=== PATIENT | male | born 1955 | race African-American/Black ===

== ENCOUNTER 2016-11-23 18:23 | Emergency (ER) | payer OTHER ==
[~2016-11-23] VITALS: Ht 185.4 cm; Wt 106.4 kg
[~2016-11-23 18:23] MED LIST: AMLO5TAB4 PO; ASPI81TA2 PO; ATOR20TA86 PO; CARV12.580 PO; FURO-151 PO; POTA10CA44 PO
[2016-11-23 18:26] VITALS: BP 151/113
== END 2016-11-23 20:24 | disposition left against medical advice (07) ==
LOC: EMS 18:25
DX: Z53.21 Procedure and treatment not carried out due to patient leaving prior to being seen by health care provider (principal)

== ENCOUNTER 2018-04-17 09:12 | Inpatient (IN) | payer MEDICARE, OTHER ==
[~2018-04-17] VITALS: Ht 185.4 cm; Wt 106.4 kg
[~2018-04-17 09:12] MED LIST changes: -AMLO5TAB4 PO; -ASPI81TA2 PO; +ASPI81TA39 PO; -CARV12.580 PO
[2018-04-17] MEDS ORDERED: IPRATROPIUM BROMIDE 0.5 MG/2.5 ML NEB SOLUTION NEB ONE (10:23)
[2018-04-17 10:49] LABS: BASOPHILS % (AUTO) 1.2 % (0.0-2.0); HEMATOCRIT 43.3 % (41-53); HEMOGLOBIN 14.5 g/dL (13.5-17.5); LYMPHOCYTES # (AUTO) 1.5 K/uL (1.0-4.8); LYMPHOCYTES % (AUTO) 23.3 % (22.0-44.0); MEAN CORPUSCULAR HEMOGLOBIN 29.8 pg (26.0-34.0); MEAN CORPUSCULAR HGB CONC 33.6 G/dL (31.0-37.0); MEAN CORPUSCULAR VOLUME 89 fL (80-100); MONOCYTES # (AUTO) 0.4 K/uL (0.1-1.0); NEUTROPHILS # (AUTO) 4.2 K/uL (1.8-7.7); NEUTROPHILS % (AUTO) 67.5 % (40.0-70.0); PLATELET COUNT (AUTO) 161 K/uL (150-450); RED BLOOD CELL COUNT(AUTO) 4.88 MIL/uL (4.50-5.90); RED CELL DISTRIBUTION WIDTH 14.6 % (11.5-14.5)
[2018-04-17 11:07] LABS: ANION GAP 9 mmol/L (8-16); CALCIUM, TOTAL 8.9 mg/dL (8.8-10.5); CARBON DIOXIDE 27 mmol/L (22-29); CHLORIDE 101 mmol/L (98-107); CREATININE 1.24 mg/dL (0.60-1.30); GLOMERULAR FILTR. RATE CALC > 60 mL/min (>60); GLUCOSE,RANDOM 327 mg/dL (70-110); POTASSIUM 4.1 mmol/L (3.5-5.1); SODIUM SERUM 137 mmol/L (136-145); UREA NITROGEN, BLOOD 12 mg/dL (7-18)
[2018-04-17 11:13] LABS: ALANINE AMINOTRANSFERASE 36 U/L (12-78); ALBUMIN 3.5 g/dL (3.4-5.0); ALKALINE PHOSPHATASE 86 U/L (46-116); ASPARTATE AMINOTRANSFERASE 29 U/L (15-37); BILIRUBIN,TOTAL 1.1 mg/dL (0.1-1.0); LIPASE 151 U/L (73-393); TOTAL PROTEIN, SERUM 7.1 g/dL (6.4-8.2)
[2018-04-17 11:26] LABS: B-TYPE NATRIURETIC PEPTIDE 587 pg/mL (0-100)
[2018-04-17 11:41] LABS: INFLUENZA TYPE A NEGATIVE FOR TYPE A (NEGATIVE)
[2018-04-17 11:42] LABS: INFLUENZA TYPE B NEGATIVE FOR TYPE B (NEGATIVE)
[2018-04-17] MEDS ORDERED: ASPIRIN 81 MG CHEWABLE TABLET PO ONE (11:45)
[2018-04-17 12:15] LABS: INR 1.1 (0.9-1.1); PROTHROMBIN TIME 11.4 SEC (9.4-11.6)
[2018-04-17] MEDS ORDERED: HEPARIN SODIUM 25000 UNITS/D5W 250 ML IV PRN ×2 (12:15→15:40)
[2018-04-17] MEDS ORDERED: HEPARIN SODIUM,PORCINE 5,000 UNITS/ML VIAL IVP ONE (12:15)
[2018-04-17] MEDS ORDERED: ONDANSETRON HCL 4 MG/2 ML VIAL IVP PRN ×2 (12:45→15:45)
[2018-04-17] MEDS ORDERED: ACETAMINOPHEN 325 MG TABLET PO PRN ×2 (12:45→15:45)
[2018-04-17] MEDS ORDERED: 0.9% SODIUM CHLORIDE 10 ML SYRINGE IVP PRN (12:45)
[2018-04-17 15:13] LABS: GLUCOSE,POINT OF CARE 307 MG/DL (70-110)
[2018-04-17] MEDS ORDERED: BISACODYL 10 MG RECTAL RECTAL SUPPOSITORY PR PRN (15:45)
[2018-04-17] MEDS ORDERED: HYDROCODONE/ACETAMINOPHEN 5-325 MG TABLET PO PRN (15:45)
[2018-04-17] MEDS ORDERED: ZOLPIDEM TARTRATE 5 MG TABLET PO PRN (15:45)
[2018-04-17] MEDS ORDERED: MAGNESIUM HYDROXIDE SUSPENSION 30 ML UDCUP PO PRN (15:45)
[2018-04-17] MEDS ORDERED: MORPHINE SULFATE 4 MG/ML SYRINGE IVP PRN (15:45)
[2018-04-17] MEDS ORDERED: HEPARIN SODIUM,PORCINE 5,000 UNITS/ML VIAL IVP PRN ×2 (15:45)
[2018-04-17 16:09] VITALS: BP 201/119
[2018-04-17 16:25] LABS: INR 1.1 (0.9-1.1); PROTHROMBIN TIME 11.6 SEC (9.4-11.6)
[2018-04-17 16:26] LABS: BASOPHILS % (AUTO) 0.8 % (0.0-2.0); EOSINOPHILS % (AUTO) 1.1 % (1.0-6.0); HEMOGLOBIN 14.7 g/dL (13.5-17.5); LYMPHOCYTES % (AUTO) 27.1 % (22.0-44.0); MEAN CORPUSCULAR HEMOGLOBIN 29.3 pg (26.0-34.0); MEAN CORPUSCULAR HGB CONC 33.3 G/dL (31.0-37.0); MEAN CORPUSCULAR VOLUME 88 fL (80-100); MONOCYTES # (AUTO) 0.5 K/uL (0.1-1.0); MONOCYTES % (AUTO) 6.9 % (2.0-9.0); NEUTROPHILS # (AUTO) 4.8 K/uL (1.8-7.7); NEUTROPHILS % (AUTO) 64.1 % (40.0-70.0); PLATELET COUNT (AUTO) 181 K/uL (150-450); RED CELL DISTRIBUTION WIDTH 14.2 % (11.5-14.5)
[2018-04-17 16:53] LABS: PLATELET MORPHOLOGY COMMENT LARGE PLTS PRESENT
[2018-04-17] MEDS ORDERED: DOCUSATE SODIUM 100 MG CAPSULE PO SCH (21:00)
[2018-04-17] MEDS ORDERED: FUROSEMIDE 20 MG/2 ML VIAL IVP SCH (21:00)
[2018-04-17] MEDS ORDERED: CARVEDILOL 6.25 MG TABLET PO SCH (21:00)
[2018-04-17] MEDS ORDERED: NITROGLYCERIN 2% (1 GM=INCH) PACKET TP SCH (21:00)
[2018-04-18] MEDS ORDERED: PANTOPRAZOLE SODIUM 40 MG DR TABLET PO SCH (09:00)
[2018-04-18] MEDS ORDERED: LISINOPRIL 5 MG TABLET PO SCH (09:00)
[2018-04-18] MEDS ORDERED: ASPIRIN 81 MG EC TABLET PO SCH (09:00)
== END 2018-04-17 16:20 | disposition left against medical advice (07) | DRG 280 ==
LOC: EMS 09:13 → 5S 14:32
PROVIDERS: ADMIT Internal Medicine; ATTEND Internal Medicine
DX: I21.4 Non-ST elevation (NSTEMI) myocardial infarction (principal); I50.31 Acute diastolic (congestive) heart failure; E78.5 Hyperlipidemia, unspecified; I11.0 Hypertensive heart disease with heart failure; R73.9 Hyperglycemia, unspecified; Z59.0 Homelessness
CPT/HCPCS: 83036; 87804; 93005; 94644; 96365; 96366; G0378; J1644

== ENCOUNTER 2018-09-08 07:11 | Emergency (ER) | payer MEDICARE, OTHER ==
[~2018-09-08] VITALS: Ht 185.4 cm; Wt 106.4 kg
[2018-09-08 07:28] VITALS: BP 158/112
[2018-09-08 07:45] LABS: GLUCOSE,POINT OF CARE 242 MG/DL (70-110)
== END 2018-09-08 08:05 | disposition left against medical advice (07) ==
LOC: EMS 07:13
DX: R10.9 Unspecified abdominal pain (principal); E11.9 Type 2 diabetes mellitus without complications; I10 Essential (primary) hypertension; Z59.0 Homelessness

== ENCOUNTER 2019-06-26 15:57 | Inpatient (IN) | payer MEDICARE, OTHER ==
[~2019-06-26] VITALS: Ht 185.4 cm; Wt 98.8 kg
[~2019-06-26 15:57] MED LIST changes: +AMLO5TAB9 PO; +APIX5TAB PO; -ASPI81TA39 PO; -ATOR20TA86 PO; +CARV12 PO; +COMBISP IH; -FURO-151 PO; +FURO40 PO; +LEVO250 PO; +METF-960 PO; -POTA10CA44 PO
[2019-06-26 16:43] LABS: GLUCOSE,POINT OF CARE 226 MG/DL (70-110)
[2019-06-26 16:51] LABS: BASOPHILS % (AUTO) 0.6 % (0.0-2.0); EOSINOPHILS % (AUTO) 0.1 % (1.0-6.0); HEMATOCRIT 40.8 % (41-53); HEMOGLOBIN 13.4 g/dL (13.5-17.5); LYMPHOCYTES # (AUTO) 0.6 K/uL (1.0-4.8); LYMPHOCYTES % (AUTO) 6.9 % (22.0-44.0); MEAN CORPUSCULAR HEMOGLOBIN 28.7 pg (26.0-34.0); MEAN CORPUSCULAR HGB CONC 32.9 G/dL (31.0-37.0); MEAN CORPUSCULAR VOLUME 87 fL (80-100); MONOCYTES # (AUTO) 0.9 K/uL (0.1-1.0); MONOCYTES % (AUTO) 10.2 % (2.0-9.0); NEUTROPHILS % (AUTO) 82.2 % (40.0-70.0); RED BLOOD CELL COUNT(AUTO) 4.68 MIL/uL (4.50-5.90); RED CELL DISTRIBUTION WIDTH 16.9 % (11.5-14.5)
[2019-06-26 17:01] LABS: CALCIUM, TOTAL 8.8 mg/dL (8.8-10.5); CREATININE 1.6 mg/dL (0.60-1.30); POTASSIUM 4.3 mmol/L (3.5-5.1)
[2019-06-26 17:10] LABS: PLATELET COUNT (AUTO) 184 K/uL (150-450); PLATELET MORPHOLOGY COMMENT GIANT PLTS PRESENT
[2019-06-26 17:13] LABS: ALBUMIN 2.9 g/dL (3.4-5.0); BILIRUBIN,TOTAL 2.7 mg/dL (0.1-1.0); MAGNESIUM 1.8 mg/dL (1.80-2.40)
[2019-06-26] MEDS ORDERED: FUROSEMIDE 40 MG/4 ML VIAL IVP ONE (18:45)
[2019-06-26] MEDS ORDERED: ZOLPIDEM TARTRATE 5 MG TABLET PO PRN (23:15)
[2019-06-26] MEDS ORDERED: MORPHINE SULFATE 2 MG/ML SYRINGE IVP PRN (23:15)
[2019-06-26] MEDS ORDERED: BISACODYL 10 MG RECTAL RECTAL SUPPOSITORY PR PRN (23:15)
[2019-06-26] MEDS ORDERED: MAGNESIUM HYDROXIDE SUSPENSION 30 ML UDCUP PO PRN (23:15)
[2019-06-26] MEDS ORDERED: DEXTROSE 50%-WATER 25 GM/50 ML SYRINGE IVP PRN (23:15)
[2019-06-26] MEDS ORDERED: ONDANSETRON HCL 4 MG/2 ML VIAL IVP PRN (23:15)
[2019-06-26] MEDS ORDERED: ACETAMINOPHEN 325 MG TABLET PO PRN (23:15)
[2019-06-26] MEDS ORDERED: HYDROCODONE/ACETAMINOPHEN 5-325 MG TABLET PO PRN (23:15)
[2019-06-27 04:13] LABS: GLUCOSE,POINT OF CARE 215 MG/DL (70-110)
[2019-06-27] MEDS: DOCUSATE SODIUM 100 MG CAPSULE PO SCH ×2 (08:04→21:29)
[2019-06-27] MEDS: AmLODIPine BESYLATE 5 MG TABLET PO SCH (08:04)
[2019-06-27] MEDS: PANTOPRAZOLE SODIUM 40 MG DR TABLET PO SCH (08:04)
[2019-06-27] MEDS ORDERED: FUROSEMIDE 20 MG/2 ML VIAL IVP SCH (09:00)
[2019-06-27] MEDS: APIXABAN 5 MG TABLET PO SCH ×2 (09:07→21:29)
[2019-06-27] MEDS: CARVEDILOL 12.5 MG TABLET PO SCH ×2 (09:07→21:29)
[2019-06-27] MEDS: ASPIRIN 81 MG EC TABLET PO SCH (09:07)
[2019-06-27 10:53] VITALS: BP 101/73
[2019-06-27 11:29] LABS: GLUCOMETER DEV NAME(LOC) AHU.; GLUCOSE,POINT OF CARE 193 MG/DL (70-110)
[2019-06-27 11:34] LABS: CALCIUM, TOTAL 8.5 mg/dL (8.8-10.5); CREATININE 1.49 mg/dL (0.60-1.30); POTASSIUM 3.7 mmol/L (3.5-5.1)
[2019-06-27 11:42] LABS: ALBUMIN 2.5 g/dL (3.4-5.0); BILIRUBIN,TOTAL 2.7 mg/dL (0.1-1.0); TOTAL PROTEIN, SERUM 6.1 g/dL (6.4-8.2)
[2019-06-27] MEDS: INSULIN LISPRO 100 UNITS/ML SQ PRN ×2 (12:46→18:01)
[2019-06-27 15:07] VITALS: BP 105/69
[2019-06-27 15:16] LABS: GLUCOMETER DEV NAME(LOC) AHU.; GLUCOSE,POINT OF CARE 155 MG/DL (70-110)
[2019-06-27 17:57] LABS: GLUCOMETER DEV NAME(LOC) AHU.; GLUCOSE,POINT OF CARE 202 MG/DL (70-110)
[2019-06-27 18:03] VITALS: BP 114/91
[2019-06-27 20:49] LABS: GLUCOMETER DEV NAME(LOC) AHU.; GLUCOSE,POINT OF CARE 116 MG/DL (70-110)
[2019-06-27] MEDS: FUROSEMIDE 40 MG/4 ML VIAL IVP SCH (21:29)
[2019-06-27 23:34] VITALS: BP 98/73
[2019-06-28 01:04] VITALS: BP 106/77
[2019-06-28 05:06] VITALS: BP 113/85
[2019-06-28 05:14] LABS: GLUCOMETER DEV NAME(LOC) AHU.; GLUCOSE,POINT OF CARE 139 MG/DL (70-110)
[2019-06-28 08:15] VITALS: BP 126/99
[2019-06-28] MEDS: FUROSEMIDE 40 MG/4 ML VIAL IVP SCH ×2 (08:17→20:17)
[2019-06-28] MEDS: CARVEDILOL 12.5 MG TABLET PO SCH ×2 (08:18→21:54)
[2019-06-28] MEDS: DOCUSATE SODIUM 100 MG CAPSULE PO SCH ×2 (08:18→21:00)
[2019-06-28] MEDS: PANTOPRAZOLE SODIUM 40 MG DR TABLET PO SCH (08:19)
[2019-06-28] MEDS: AmLODIPine BESYLATE 5 MG TABLET PO SCH (08:19)
[2019-06-28] MEDS: ASPIRIN 81 MG EC TABLET PO SCH (08:19)
[2019-06-28] MEDS: APIXABAN 5 MG TABLET PO SCH ×2 (08:20→21:54)
[2019-06-28 12:00] VITALS: BP 139/86
[2019-06-28 16:00] VITALS: BP 133/81
[2019-06-28] MEDS: SPIRONOLACTONE 25 MG TABLET PO SCH (17:10)
[2019-06-28 17:30] LABS: GLUCOMETER DEV NAME(LOC) AHU.; GLUCOSE,POINT OF CARE 211 MG/DL (70-110)
[2019-06-28 20:00] VITALS: BP 112/83
[2019-06-28 22:51] LABS: GLUCOMETER DEV NAME(LOC) AHU.; GLUCOSE,POINT OF CARE 100 MG/DL (70-110)
[2019-06-29] VITALS: BP 109/74
[2019-06-29 00:56] VITALS: BP 109/74
[2019-06-29 04:28] VITALS: BP 106/80
[2019-06-29 06:38] LABS: BASOPHILS % (AUTO) 0.4 % (0.0-2.0); EOSINOPHILS % (AUTO) 0 % (1.0-6.0); HEMOGLOBIN 13.1 g/dL (13.5-17.5); LYMPHOCYTES # (AUTO) 0.3 K/uL (1.0-4.8); LYMPHOCYTES % (AUTO) 3.9 % (22.0-44.0); MEAN CORPUSCULAR HEMOGLOBIN 28.1 pg (26.0-34.0); MEAN CORPUSCULAR HGB CONC 32.7 G/dL (31.0-37.0); MEAN CORPUSCULAR VOLUME 86 fL (80-100); MONOCYTES # (AUTO) 0.7 K/uL (0.1-1.0); MONOCYTES % (AUTO) 9.8 % (2.0-9.0); NEUTROPHILS # (AUTO) 6.4 K/uL (1.8-7.7); PLATELET COUNT (AUTO) 189 K/uL (150-450); RED BLOOD CELL COUNT(AUTO) 4.65 MIL/uL (4.50-5.90); RED CELL DISTRIBUTION WIDTH 16.6 % (11.5-14.5)
[2019-06-29 06:41] LABS: NEUTROPHILS % (AUTO) 85.9 % (40.0-70.0)
[2019-06-29 06:42] LABS: PLATELET MORPHOLOGY COMMENT GIANT PLTS PRESENT
[2019-06-29] MEDS: INSULIN LISPRO 100 UNITS/ML SQ PRN ×3 (06:51→21:54)
[2019-06-29 07:23] LABS: ALBUMIN 2.5 g/dL (3.4-5.0); BILIRUBIN,TOTAL 3.9 mg/dL (0.1-1.0); CALCIUM, TOTAL 8.9 mg/dL (8.8-10.5); CREATININE 1.84 mg/dL (0.60-1.30); POTASSIUM 4.4 mmol/L (3.5-5.1); TOTAL PROTEIN, SERUM 6.4 g/dL (6.4-8.2)
[2019-06-29 08:50] VITALS: BP 117/93
[2019-06-29] MEDS: FUROSEMIDE 40 MG/4 ML VIAL IVP SCH ×2 (08:56→21:50)
[2019-06-29] MEDS: AmLODIPine BESYLATE 5 MG TABLET PO SCH (08:58)
[2019-06-29] MEDS: CARVEDILOL 12.5 MG TABLET PO SCH ×2 (08:58→21:49)
[2019-06-29] MEDS: ASPIRIN 81 MG EC TABLET PO SCH (08:58)
[2019-06-29] MEDS: APIXABAN 5 MG TABLET PO SCH ×2 (08:58→23:11)
[2019-06-29] MEDS: PANTOPRAZOLE SODIUM 40 MG DR TABLET PO SCH (08:58)
[2019-06-29] MEDS: DOCUSATE SODIUM 100 MG CAPSULE PO SCH ×2 (08:59→21:00)
[2019-06-29] MEDS: SPIRONOLACTONE 25 MG TABLET PO SCH (09:00)
[2019-06-29 11:40] VITALS: BP 115/74
[2019-06-29 12:14] LABS: GLUCOMETER DEV NAME(LOC) 5S.1; GLUCOSE,POINT OF CARE 125 MG/DL (70-110)
[2019-06-29 21:01] VITALS: BP 107/71
[2019-06-30 00:35] VITALS: BP 102/57
[2019-06-30 03:35] LABS: GLUCOMETER DEV NAME(LOC) 5S.1; GLUCOSE,POINT OF CARE 182 MG/DL (70-110)
[2019-06-30 05:28] VITALS: BP 107/73
[2019-06-30 06:40] LABS: GLUCOMETER DEV NAME(LOC) 5N.2; GLUCOSE,POINT OF CARE 194 MG/DL (70-110)
[2019-06-30 07:19] LABS: CALCIUM, TOTAL 8.7 mg/dL (8.8-10.5); CREATININE 1.79 mg/dL (0.60-1.30); POTASSIUM 4.1 mmol/L (3.5-5.1)
[2019-06-30 07:21] LABS: BASOPHILS % (AUTO) 0.1 % (0.0-2.0); EOSINOPHILS % (AUTO) 0 % (1.0-6.0); HEMATOCRIT 39.1 % (41-53); HEMOGLOBIN 12.6 g/dL (13.5-17.5); LYMPHOCYTES # (AUTO) 0.4 K/uL (1.0-4.8); LYMPHOCYTES % (AUTO) 9.1 % (22.0-44.0); MEAN CORPUSCULAR HEMOGLOBIN 27.5 pg (26.0-34.0); MEAN CORPUSCULAR HGB CONC 32.2 G/dL (31.0-37.0); MEAN CORPUSCULAR VOLUME 86 fL (80-100); MONOCYTES # (AUTO) 0.8 K/uL (0.1-1.0); MONOCYTES % (AUTO) 17.7 % (2.0-9.0); NEUTROPHILS # (AUTO) 3.2 K/uL (1.8-7.7); NEUTROPHILS % (AUTO) 73.1 % (40.0-70.0); RED BLOOD CELL COUNT(AUTO) 4.56 MIL/uL (4.50-5.90); RED CELL DISTRIBUTION WIDTH 16.8 % (11.5-14.5)
[2019-06-30 08:02] LABS: PLATELET COUNT (AUTO) 181 K/uL (150-450)
[2019-06-30 08:03] LABS: PLATELET MORPHOLOGY COMMENT GIANT PLTS PRESENT
[2019-06-30] MEDS: DOCUSATE SODIUM 100 MG CAPSULE PO SCH ×2 (09:00→22:05)
[2019-06-30] MEDS: PANTOPRAZOLE SODIUM 40 MG DR TABLET PO SCH (09:00)
[2019-06-30] MEDS: CARVEDILOL 12.5 MG TABLET PO SCH ×4 (09:00→22:02)
[2019-06-30] MEDS: SPIRONOLACTONE 25 MG TABLET PO SCH ×3 (09:00→15:42)
[2019-06-30] MEDS: FUROSEMIDE 40 MG/4 ML VIAL IVP SCH ×4 (09:00→22:02)
[2019-06-30] MEDS: AmLODIPine BESYLATE 5 MG TABLET PO SCH (09:00)
[2019-06-30] MEDS: APIXABAN 5 MG TABLET PO SCH ×4 (09:00→23:23)
[2019-06-30] MEDS: ASPIRIN 81 MG EC TABLET PO SCH ×2 (09:00→15:42)
[2019-06-30 20:38] VITALS: BP 103/74
[2019-07-01 00:28] VITALS: BP 96/56
[2019-07-01 04:45] VITALS: BP 93/68
[2019-07-01 07:28] LABS: EOSINOPHILS % (AUTO) 0 % (1.0-6.0); HEMATOCRIT 38.8 % (41-53); HEMOGLOBIN 12.5 g/dL (13.5-17.5); LYMPHOCYTES # (AUTO) 0.4 K/uL (1.0-4.8); LYMPHOCYTES % (AUTO) 10.2 % (22.0-44.0); MEAN CORPUSCULAR HEMOGLOBIN 27.6 pg (26.0-34.0); MEAN CORPUSCULAR HGB CONC 32.3 G/dL (31.0-37.0); MEAN CORPUSCULAR VOLUME 85 fL (80-100); MONOCYTES # (AUTO) 0.6 K/uL (0.1-1.0); MONOCYTES % (AUTO) 13.5 % (2.0-9.0); NEUTROPHILS # (AUTO) 3.1 K/uL (1.8-7.7); NEUTROPHILS % (AUTO) 76.3 % (40.0-70.0); PLATELET COUNT (AUTO) 164 K/uL (150-450); RED BLOOD CELL COUNT(AUTO) 4.55 MIL/uL (4.50-5.90)
[2019-07-01 07:32] LABS: PLATELET MORPHOLOGY COMMENT GIANT PLTS PRESENT
[2019-07-01 07:35] LABS: CALCIUM, TOTAL 8.4 mg/dL (8.8-10.5); CREATININE 1.61 mg/dL (0.60-1.30)
[2019-07-01 07:48] LABS: GLUCOMETER DEV NAME(LOC) 5S.1; GLUCOSE,POINT OF CARE 214 MG/DL (70-110)
[2019-07-01] MEDS: FUROSEMIDE 40 MG/4 ML VIAL IVP SCH (08:38)
[2019-07-01] MEDS: DOCUSATE SODIUM 100 MG CAPSULE PO SCH (08:40)
[2019-07-01] MEDS: ASPIRIN 81 MG EC TABLET PO SCH (08:40)
[2019-07-01] MEDS: SPIRONOLACTONE 25 MG TABLET PO SCH (08:40)
[2019-07-01] MEDS: CARVEDILOL 12.5 MG TABLET PO SCH (08:40)
[2019-07-01] MEDS: PANTOPRAZOLE SODIUM 40 MG DR TABLET PO SCH (08:41)
[2019-07-01] MEDS: APIXABAN 5 MG TABLET PO SCH (08:41)
[2019-07-01] MEDS: AmLODIPine BESYLATE 5 MG TABLET PO SCH (08:41)
== END 2019-07-01 13:15 | disposition left against medical advice (07) | DRG 291 ==
LOC: EMS 15:59 → AHU 06-27 11:28 → 5N 06-29 13:37
PROVIDERS: ADMIT Internal Medicine; ATTEND Internal Medicine
DX: I13.0 Hypertensive heart and chronic kidney disease with heart failure and stage 1 through stage 4 chronic kidney disease, or unspecified chronic kidney disease (principal); I50.31 Acute diastolic (congestive) heart failure; F33.1 Major depressive disorder, recurrent, moderate; E44.0 Moderate protein-calorie malnutrition; E11.22 Type 2 diabetes mellitus with diabetic chronic kidney disease; I42.9 Cardiomyopathy, unspecified; N18.3 Chronic kidney disease, stage 3 (moderate); R79.89 Other specified abnormal findings of blood chemistry; R74.0 Nonspecific elevation of levels of transaminase and lactic acid dehydrogenase [LDH]; E78.5 Hyperlipidemia, unspecified; Z53.29 Procedure and treatment not carried out because of patient's decision for other reasons; Z68.28 Body mass index [BMI] 28.0-28.9, adult; Z79.899 Other long term (current) drug therapy; Z86.711 Personal history of pulmonary embolism; Z59.0 Homelessness; Z91.14 Patient's other noncompliance with medication regimen
CPT/HCPCS: 83735; 93005; 93306; 99291; J1815; J1940